=== PATIENT | male | born 1985 | race Caucasian/White ===

== ENCOUNTER 2024-07-28 11:58 | Emergency (ER) | payer OTHER ==
[~2024-07-28] VITALS: Ht 175.3 cm; Wt 61.0 kg
[2024-07-28 12:04] VITALS: BP 138/92
[2024-07-28 12:21] VITALS: BP 127/101
[2024-07-28] MEDS ORDERED: oxyCODONE 5MG/ ACETAMINOPHEN 325MG TAB PO ONE (12:25)
[2024-07-28] MEDS ORDERED: KETOROLAC TROMETHAMINE 30 MG/ML SDV IM ONE (12:25)
[2024-07-28] MEDS ORDERED: PENicillin V POTASSIUM 500 MG/TAB PO ONE (12:25)
[2024-07-28 12:30] VITALS: BP 139/88
[2024-07-28] MEDS ORDERED: TRAMADOL HYDROC50 M1 PO (12:31)
[2024-07-28] MEDS ORDERED: PENICILLN VK500 MG PO (12:31)
[2024-07-28] MEDS ORDERED: NAPROXEN500 MG PO (12:31)
[2024-07-28 12:45] VITALS: BP 131/89
== END 2024-07-28 12:48 | disposition home or self-care (01) ==
LOC: ED 11:58
DX: K04.7 Periapical abscess without sinus (principal); K02.9 Dental caries, unspecified